=== PATIENT | female | born 1950 | race Caucasian/White ===

== ENCOUNTER → 2020-12-05 15:45 | Outpatient (CLI) | payer MEDICARE, OTHER, SELFPAY ==
--- NOTE | ~2020-12-05 | MM_ITS ---
EXAMINATION: MM screening axel BI w oscar HISTORY: Screening mammogram TECHNIQUE: Craniocaudal and mediolateral oblique 3-D tomosynthesis images were obtained and synthetic 2-D images were generated. CAD analysis was submitted and interpreted. COMPARISON: 07/11/2019 bilateral diagnostic digital mammogram 07/04/2019, 08/11/2017, 05/27/2016 bilateral digital screening mammogram examinations BREAST PARENCHYMAL COMPOSITION: The breasts are heterogeneously dense, which may obscure small masses . FINDINGS: Numerous scattered benign calcifications are again noted. Approximately 8.5 cm upper mid right breast mass with calcifications, diminished in size from approxi mately 11 mm on 05/27/2016, relatively stable in size since 07/04/2019. There is no evidence of suspici ous mass, calcification, or architectural distortion to suggest malignancy in either breast. There crow s been no suspicious interval change. IMPRESSION: 1. No mammographic evidence of malignancy. 2. Recommend routine screening mammography in one year. BI-RADS Category 2: Benign finding(s). Reviewed, dictated and finalized at location A. TER OPERATOR
== END ==
PROVIDERS: PCP Family Medicine Adolescent Medicine; Visit Provider Physician Assistant
DX: Z12.31 Encounter for screening mammogram for malignant neoplasm of breast (principal)
CPT/HCPCS: 77063; 77067

== ENCOUNTER 2021-12-28 13:37 | Outpatient (CLI) | payer MEDICARE, OTHER, SELFPAY ==
--- NOTE | 2021-12-31 12:11 | WPDHOLTEREM ---
Holter/Event Monitor Holter/Event Monitor Date of procedure: 12/28/21 Holter/Event Procedure: 48 Hr Holter Monitor Indications: Palpitations Conclusion: 1. 48 hour holter monitor on 12/28/21. 2. Underlying rhythm is sinus rhythm. HR range 55-100 bpm; average HR 69 bpm. 3. There are 24 premature supraventricular complexes and 3 supraventricular couplets. No supraventricular tachycardia. 4. There are 9 premature ventricular complexes. No ventricular tachycardia. 5. No sinoatrial or atrioventricular blocks. No significant pauses greater than 2 seconds. 6. Patient reports symptoms of hot flash, heart racing, lightheadedness which demonstrate sinus rhythm, HR range 66-80 bpm.
== END 2021-12-28 13:38 | disposition home or self-care (01) ==
PROVIDERS: PCP Family Medicine Adolescent Medicine; Visit Provider Physician Assistant
DX: R00.2 Palpitations (principal)
CPT/HCPCS: 93225; 93226

== ENCOUNTER → 2022-03-18 13:06 | Outpatient (CLI) | payer MEDICARE, OTHER, SELFPAY ==
--- NOTE | ~2022-03-18 | MM_ITS ---
EXAMINATION: MM screening axel BI w oscar HISTORY: Screening TECHNIQUE: Craniocaudal and mediolateral oblique 3-D tomosynthesis images were obtained and synthetic 2-D images were generated. CAD analysis was submitted and interpreted. COMPARISON: Comparison to multiple prior studies sequentially, with oldest reviewed study dated 05/27. BREAST PARENCHYMAL COMPOSITION: The breasts are heterogenously dense, which may obscure small masses FINDINGS: There are stable or diminished size of bilateral breast masses, consistent with benign mass es. There is no evidence of suspicious mass, calcification, or architectural distortion to suggest ma lignancy in either breast. There has been no suspicious interval change. IMPRESSION: 1. No mammographic evidence of malignancy. 2. Recommend routine screening mammography in one year. BI-RADS Category 2: Benign finding(s). Reviewed, dictated and finalized at location A.
== END ==
PROVIDERS: PCP Family Medicine Adolescent Medicine; Visit Provider Family Medicine Adolescent Medicine
DX: Z12.31 Encounter for screening mammogram for malignant neoplasm of breast (principal)
CPT/HCPCS: 77063; 77067

== ENCOUNTER → 2022-06-29 06:53 | Outpatient (CLI) | payer MEDICARE, OTHER, SELFPAY ==
--- NOTE | ~2022-06-29 | MR_ITS ---
EXAMINATION: MR knee RT wo con DATE: 06/29/2022 07:27 INDICATION: Right knee pain. Meniscal tear. TECHNIQUE: Magnetic resonance imaging (MRI) of the right knee was performed without intravenous contr ast. Sequences included axial PD-weighted FS FSE, coronal PD-weighted FSE and PD-weighted FS FSE, sag ittal PD-weighted FSE, and sagittal T2-weighted FS FSE. COMPARISON: None. FINDINGS: Medial compartment: There is a radial tear of posterior horn of medial meniscus. There is shallow partial-thickness carti nusrat loss of tibial condyle. There is partial-thickness cartilage loss of femoral condyle, deep at th e central and posterior articular surface. There is cartilage undermining at the central articular hurst rface. Osteophytes are noted. Lateral compartment: There is maceration of the lateral meniscus. There is extensive full-thickness cartilage loss of femo ral condyle and tibial condyle with cortical remodeling. Osteophytes are noted. Patellofemoral compartment: There is full-thickness cartilage fissuring involving patellar lateral facet with subchondral cysts. There is deep partial thickness cartilage loss of patellar median ridge and shallow partial-thickness cartilage loss of patellar medial facet. There is partial-thickness cartilage loss of trochlea, deep at the central trochlea. Osteophytes are noted. Ligaments and tendons: There is a complete tear of anterior cruciate ligament. Posterior cruciate ligament is normal. There are changes of prior sprains of medial collateral ligament and fibular collateral ligament characteri zed by thickening and increased signal intensity. There is mild patellar tendinopathy. Fluid: There is a moderate-sized knee joint effusion. There is a moderate-sized Vazquez's cyst. There is a 1.8 x 1.3 x 1.7 cm ganglion cyst arising from the popliteus tendon sheath. Osseous/other: There is mild osteoarthritis of proximal tibiofibular joint with moderate subchondral edema-like claribel ow signal intensity in fibular head. IMPRESSION: 1. 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 2. Tears of medial and lateral menisci. 3. Complete tear of anterior cruciate ligament. 4. Small knee joint effusion. 5. Moderate-sized Vazquez's cyst. Reviewed, dictated and finalized at location A. IMPRESSION: 1. 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 2. Tears of medial and lateral menisci. 3. Complete tear of anterior cruciate ligament. 4. Small knee joint effusion. 5. Moderate-sized Vazquez's cyst.
== END ==
PROVIDERS: PCP Family Medicine Adolescent Medicine; Visit Provider Physician Assistant
DX: M25.461 Effusion, right knee (principal); M71.21 Synovial cyst of popliteal space [Baker], right knee; S83.241A Other tear of medial meniscus, current injury, right knee, initial encounter; S83.281A Other tear of lateral meniscus, current injury, right knee, initial encounter; X58.XXXA Exposure to other specified factors, initial encounter
CPT/HCPCS: 73721

== ENCOUNTER 2022-09-13 10:45 | Outpatient (CLI) | payer MEDICARE, OTHER, SELFPAY ==
--- NOTE | 2022-09-13 11:05 | ECG_ITS ---
Measurements Intervals [place] Rate: 68 P: 69 OR: 192 QRS: 6 QRSD: 82 T: 40 QT: 393 QTc: 419 Interpretive Statements SINUS RHYTHM MINIMAL ST DEPRESSION [0.025+ mV ST DEPRESSION] BORDERLINE ECG NO PREVIOUS ECG AVAILABLE FOR COMPARISON Electronically Signed On 09-13-2022 15:12:38 [employer] by Vargas Monge M.D.
== END 2022-09-13 10:46 | disposition home or self-care (01) ==
PROVIDERS: PCP Family Medicine Adolescent Medicine; Visit Provider Orthopaedic Surgery
DX: I25.10 Atherosclerotic heart disease of native coronary artery without angina pectoris (principal); M17.11 Unilateral primary osteoarthritis, right knee; R94.31 Abnormal electrocardiogram [ECG] [EKG]
CPT/HCPCS: 93005

== ENCOUNTER 2022-11-03 09:51 | Outpatient (CLI) | payer MEDICARE, OTHER, SELFPAY ==
[2022-11-03 12:10] LABS: Basophils Percent Auto 0.5 % (0.2-1.2); Eosinophils Absolute Auto 0.1 K/mm3 (0-0.3); Eosinophils Percent Auto 1.7 % (0-4.4); Hematocrit 37.8 % (37.0-47.0); Hemoglobin 12.4 g/dL (12.0-15.0); Immature Granulocyte Absolute 0.02 K/mm3 (0.00-0.031); Immature Granulocyte Percent A 0.3 % (0-0.5); Lymphocytes Absolute Auto 2.02 K/mm3 (0.9-3.2); Lymphocytes Percent Auto 33.6 % (18.3-44.2); Mean Corpuscular HGB Conc 32.8 g/dl (32-36); Mean Corpuscular Volume 88.5 fl (80-100); Mean Platelet Volume 11.3 fl (7.4-10.4); Monocytes Absolute Auto 0.5 K/mm3 (0.1-0.6); Monocytes Percent Auto 7.7 % (2.6-8.5); Neutrophils Absolute Auto 3.4 K/mm3 (1.3-6.7); Neutrophils Percent Auto 56.2 % (45.5-73.1); Platelet Count Result 239 k/mm3 (150-375); Red Blood Count 4.27 M/mm3 (4.2-5.4); Red Cell Distribution Width 12.7 % (11.5-14.5)
[2022-11-03 12:12] LABS: Albumin Level 4.1 g/dL (3.5-5.1); Anion Gap 6 mmol/L (8-16); Blood Urea Nitrogen 11 mg/dL (7-17); Calcium 9.4 mg/dL (8.4-10.2); Carbon Dioxide 31 mmol/L (22-30); Chloride 102 mmol/L (98-107); Estimated Glomerular Filt Rate > 60; Glucose 122 mg/dL (65-110); Sodium 139 mmol/L (137-145)
[2022-11-03 12:14] LABS: Hemoglobin A1C 5.6 % (<5.7)
[2022-11-03 12:14] LABS: Urine Cotinine NEGATIVE
[2022-11-03 12:21] LABS: Prothrombin Time 12.4 Seconds (11.1-14.7)
[2022-11-03 12:22] LABS: Partial Thromboplastin Time 28.1 SECONDS (22.3-36.8)
[2022-11-03 12:50] LABS: Appearance Urine Clear (Clear); Bilirubin Urine Negative (Negative); Blood Urine Trace-lysed (Negative); Color Urine Yellow (Yellow); Glucose Urine UA Negative (Negative); Ketones Urine Negative (Negative); Leukocyte Esterase Ur Trace LEU/UL (Negative); Nitrate Urine Negative (Negative); Protein Urine Negative (Negative); Urobilinogen Urine 0.2 mg/dL (<2.0)
[2022-11-03 13:38] LABS: Mucus Urine Rare /lpf; RBC Urine 0-2 /hpf (0-2); WBC Urine 0-3 /hpf
[2022-11-03 13:43] LABS: Add Urine Microscopic? YES
== END 2022-11-03 09:52 | disposition home or self-care (01) ==
LOC: ANHSURGERY 09:56
PROVIDERS: PCP Family Medicine Adolescent Medicine; Visit Provider Orthopaedic Surgery
DX: M17.11 Unilateral primary osteoarthritis, right knee (principal); Z01.818 Encounter for other preprocedural examination
CPT/HCPCS: 80048; 80307; 81001; 82040; 83036; 85025; 85610; 85730; 87081

== ENCOUNTER 2022-11-17 01:07 | Day surgery (SDC) | payer MEDICARE, OTHER, SELFPAY ==
[2022-11-03 10:20] VITALS: BP 154/70; PULSE 72; RESP 18; TEMP 37.1; O2SAT 98; BMI 27.1
--- NOTE | 2022-11-03 10:41 | PC.NURSE ---
Addendum entered by Carla Karimi RN 11/03/22 11:04: PT INFORMED TO ALSO FOLLOW DR. RAIN'S INSTRUCTIONS REGARDING EXCEDRIN - UNDERSTANDING VOICED Original Note: PRE-OP INSTRUCTIONS, PLEASE READ CAREFULLY Report to the Outpatient Waiting Room, entrance under the green pavilion located off [facility], at time _0600_ on date _11/17/22_. Planned Procedure Time: _0730_. PACK A SMALL OVERNIGHT BAG AND LEAVE IN THE CAR ALONG WITH YOUR WALKER Time changes happen often and if your time is changed the preop area will call you the afternoon before. - You and your visitor will be asked to self-screen and do not enter if you have any COVID symptoms. - Only one visitor is requested with a max of two and NO children visitors are allowed at this time. - The patient visitor may be requested to leave or wait in car when not with patient due to distancing restrictions. - A mask is optional within the hospital at this time. -VISITING HOURS 8AM-8PM Patients may have clear liquids (water, carbonated beverages, clear teas, apple juice) until 3 hours prior to surgery (0430 AM) with a maximum of 20 ounces. - No food from midnight until time of surgery Take the following medications with a SIP of water the morning of surgery: _PROPRANOLOL, & DIAZEPAM & LORAZEPAM IF NEEDED_ DO NOT STOP ANY OF YOUR OTHER PRESCRIPTION MEDICATIONS PRIOR TO SURGERY ?EXCEPT THE FOLLOWING Medications to discontinue per DR. RAIN'S INSTRUCTIONS -_IBUPROFEN, NAPROXEN_ Please no make-up, nail german, hairspray, perfume, deodorant, or body powder the day of surgery. No jewelry (including any body piercings) or valuables the day of surgery, leave them at home. Please take a shower or bath the night before, or the morning of, surgery with an antibacterial soap. Wear comfortable, loose fitting clothing. - Jewelry must be removed prior to entering the operating room. Rings and piercings that are not removed may be cut off. - The hospital will not accept responsibility for valuables. - Please leave all valuables, including medications, at home the day of surgery. Follow any additional instructions given to you from your surgeon. If you or anyone in your household have experienced Covid symptoms in the past week, please notify your surgeon or the nurse liaison at the phone number below for possible testing. Instructions given to _PATIENT & SPOUSE_and asked if any additional questions and then verbalized understanding. Patient advised to call surgeon office or pre surgery nurse liaison [phone] if any additional questions.
[2022-11-17] VITALS (16 sets, daily range): BP systolic 109–166; BP diastolic 56–81; PULSE 63–81; RESP 12–18; TEMP 35.8–36.3; O2SAT 96–100
--- NOTE | ~2022-11-17 | XR_ITS ---
EXAMINATION: XR knee RT 2V DATE: 11/17/2022 09:55 INDICATION: Total right knee arthroplasty. Postop. TECHNIQUE: 2 views of right knee were obtained. COMPARISON: Right knee radiographs 07/15/2022 FINDINGS: There is a total right knee arthroplasty without patellar resurfacing in near-anatomic alig nment. There has been resection of a patellar osteophyte. There is gas in the knee joint and soft tis sues, consistent with recent surgery. Anterior skin roger are noted. IMPRESSION: 1. Total right knee arthroplasty in near-anatomic alignment. Reviewed, dictated and finalized at location A. IMEDIA JOURNALIST
[2022-11-17] MEDS: ACETAMINOPHEN 500 MG TABLET 1000 MG PO (06:15)
[2022-11-17] MEDS: LACTATED RINGERS 1,000 ML 30 ML IV CONT ×2 (06:44→10:05)
[2022-11-17 06:45] LABS: Glucose Point of Care 123 mg/dl (65-105)
--- NOTE | 2022-11-17 06:48 | WPDANESEPPF ---
Anes - Initial Pre Proc Eval Procedure: Operation Date: 11/17/22 07:30 Proposed Procedures p Right Total Knee Arthroplasty - Jorge Barron MD Date/Time: 11/17/22 06:48 Surgeon: Jorge Barron MD Pre Op Diagnosis: Rt Knee DJD Patient Data Age: 72 Gender: F Height: 1.59 m Weight: 68.2 kg Last Vital Signs Temp 37.1 C 11/03/22 10:20 Pulse 72 11/03/22 10:20 Resp 18 11/03/22 10:20 BP 154/70 H 11/03/22 10:20 Pulse Ox 98 11/03/22 10:20 O2 Del Method Room Air 11/03/22 10:20 Allergies Allergy/AdvReac Type Severity Reaction Status Date / Time No Known Allergies Allergy Verified 11/17/22 06:06 Home Medications Medication Instructions Recorded Confirmed Type rossuar-oyhgfeedetnxc-dpisuuxh 250 1 tablet PO Q4-6H PRN ZACARIAS 11/12/21 11/17/22 History mg-250 mg-65 mg tablet (Excedrin Migraine) ibuprofen 200 mg tablet 200 mg PO Q6H PRN Pain 11/12/21 11/17/22 History rizatriptan 10 mg tablet (Maxalt) See Rx Instructions PO .COMPLEX 11/12/21 11/17/22 History mirabegron 25 mg tablet,extended 25 mg PO DAILY #90 tabs 06/23/22 11/17/22 Rx release 24 hr (Myrbetriq) propranolol 40 mg tablet 40 mg PO Q12H #180 tabs 06/23/22 11/17/22 Rx cyanocobalamin (vitamin B-12) 2,500 mcg PO DAILY 08/17/22 11/17/22 History 1,000 mcg tablet (Vitamin B-12) atorvastatin 20 mg tablet 20 mg PO DAILY #90 tabs 09/02/22 11/17/22 Rx metformin 500 mg tablet,extended 500 mg PO BID #180 tabs 09/02/22 11/17/22 Rx release 24hr lorazepam 1 mg tablet 1 mg PO BID PRN anxiety #30 tabs 10/20/22 11/17/22 Rx pantoprazole 40 mg tablet,delayed 40 mg PO QAM #90 tabs 11/01/22 11/17/22 Rx release acetaminophen 325 mg capsule 650 mg PO QID PRN Pain 11/03/22 11/17/22 History (Tylenol) naproxen 500 mg tablet 500 mg PO BID PRN Pain 11/03/22 11/17/22 History diazepam 2 mg tablet 2 mg PO BID PRN anxiety #60 tabs 11/08/22 11/17/22 Rx chlorhexidine gluconate 4 % 1 applic topical ONCE #237 mL 11/10/22 11/17/22 Rx topical liquid (Hibiclens) Laboratory Tests 11/17/22 06:44 POC Capillary Glucose 123 mg/dl H mg/dl (65-105) Patient hx anesthesia problems: none Family hx anesthesia problems: none Results Review: All pre-operative results and documents have been reviewed as part of the pre-operative evaluation. [facility] Past Medical History Medical History Anxiety Aortic atherosclerosis CT scan 10/2018 Coronary artery disease without angina pectoris CT scan 10/2018 Diabetes type 2, controlled History of ovarian cyst Pure hypercholesterolemia, unspecified Surgical History Surgical History History of arthroscopic knee surgery bilateral History of removal of ovarian cyst [address] Clive Christopher History of surgery of uterus fibroid removed [address] Clive Christopher History of tonsillectomy 1958 Family History Family History Mother Cancer Other Cerebrovascular accident Diabetes mellitus Hyperlipidemia Hypertension Social History Social History Smoking status: Light tobacco smoker (pt. has currently stopped smoking for surgical treatment ) Tobacco type: cigars Additional smoking assessment comments: STATES 1 CIGAR EVERY 4 MONTHS OR SO - LAST CIGAR SMOKED SPRING 2021 Alcohol intake: current Alcohol use details: 3 DRINKS/MONTH Substance use type: marijuana Other substance usage details: 1/2 EDIBLE EVERY COUPLE OF WEEKS-LAST TAKEN 10/31/22 Living arrangements: with family Gender identity (if verbalized by the patient): Female Spiritual care concerns: No Anes - Eval Final PreProcedure Day of Procedure 11/17/22 06:48 Patient weight: overweight Heart: regular rate and rhythm Lungs: clear to auscultation Neurological: unresponsive Last oral intake: >/= 8
[2022-11-17] MEDS: TRANEXAMIC ACID 1,000MG/ISO100 1,000 MG/100 ML BAG 200 MG IVPB (07:12)
--- NOTE | 2022-11-17 07:20 | WPDHPUPDATE1 ---
History and Physical Update Update Date/Time: 11/17/22 07:20 History and Physical has been reviewed, including an updated exam of the patient. There are NO changes in the patient's condition. Risks, benefits, and alternatives have been discussed and questions answered. Patient agrees to proceed with procedure.
[2022-11-17] MEDS: ceFAZolin 2 GM/D5W 50 ML 2 GM/50 ML BAG IVPB ×3 (07:41→22:38)
[2022-11-17] MEDS: GENTAMICIN BONE CEMENT REFOBACIN 1 EACH TOPICAL (08:36)
[2022-11-17] MEDS: BUPivacaine HCL 0.5% PF 30 ML VIAL INFILTRATE (08:59)
[2022-11-17] MEDS: TRANEXAMIC ACID 1,000 MG/10 ML AMPUL 1000 MG IV PUSH (09:10)
--- NOTE | 2022-11-17 09:34 | W.PM.PROC2 ---
Procedure Note - Detailed Date of Procedure 11/17/22 Pre-op Diagnosis Rt Knee DJD Post-op Diagnosis Same Procedure Performed R TKA Surgeon Jorge Barron MD Anesthesia General Description of Procedure THE RIGHT KNEE WAS PREPPED AND DRAPED IN THE STERILE FASHION. A MIDLINE SKIN INCISION WAS MADE. A MEDIAL PARAPATELLAR ARTHROTOMY WAS MADE. THE PATELLA WAS EVERTED. THERE WAS TRICOMPARTMENT DJD. THERE WAS MINIMAL PATELLA DJD. AN INTRAMEDULLARY MICHAEL WAS PLACED IN THE FEMUR. A DISTAL FEMORAL CUT WAS MADE IN 5 DEGREES OF VALGUS REMOVING APPROXIMATELY 9 MM OF BONE FROM THE DISTAL FEMUR. THE FEMUR WAS SIZED TO 60. A 60 FEMORAL CUTTING BLOCK WAS PLACED IN 3 DEGREES OF EXTERNAL ROTATION AND IN ALIGNMENT WITH MISSY'S LINE AND THE TRANSEPICONDYLAR AXIS. ANTERIOR POSTERIOR AND CHAMFER CUTS WERE MADE. THE CUTS WERE EXCELLENT. NEXT AN INTRAMEDULLARY CUTTING GUIDE WAS PLACED IN THE TIBIA. A TRANS TIBIAL CUT WAS MADE ALONG THE LONG AXIS OF THE TIBIA. APPROXIMATELY 10 MM OF BONE WAS REMOVED FROM THE HIGH SIDE OF THE TIBIA. THE TIBIA WAS THEN PLANED TO A SMOOTH SURFACE. POSTERIOR FEMORAL OSTEOPHYTES WERE REMOVED FROM THE FEMORAL CONDYLES. A 71 TIBIAL TRIAL WAS PLACED IN ALIGNMENT WITH THE 1/3 MEDIAL ASPECT OF THE TIBIAL TUBERCLE. THEN A 60 FEMORAL TRIAL COMPONENT WAS PLACED. BOTH HAD EXCELLENT FITS. EVENTUALLY A 10 MM POLYETHYLENE TRIAL COMPONENT WAS PLACED. THE KNEE WAS TAKEN THROUGH A RANGE OF MOTION. THE KNEE CAME OUT TO FULL EXTENSION. THERE WAS NO ABNORMAL TILT TO THE PATELLA. THERE WAS GOOD A/P AND VARUS/VALGUS STABILITY. THERE WAS NO EXCESSIVE ROLL BACK WITH FLEXION. THE TRIAL COMPONENTS WERE REMOVED. THEN A 60 FEMORAL COMPONENT AND 71 TIBIAL COMPONENT WITH A 10 POLYETHYLENE COMPONENT WERE CEMENTED INTO PLACE. ONCE THE CEMENT WAS HARD THE KNEE WAS TAKEN THROUGH A ROM AGAIN AND FOUND TO BE STABLE WITH NO PATELLA TILT NO EXCESSIVE ROLL BACK WITH FLEXION AND GOOD STABILITY WITH COMPLETE AND FULL EXTENSION. THE KNEE WAS IRRIGATED WITH STERILE BETADINE AND WATER FOR ABOUT 3 MINUTES. THE BLEEDERS WERE CAUTERIZED. THE ARTHROTOMY WAS REPAIRED WITH NUMBER 1 VICRYL. THE SUB CUTANEOUS LAYER WITH 2-0 VICRYL AND THE SKIN WITH SANDEE. THE WOUND WAS WASHED AND A STERILE DRESSING WAS APPLIED. PATIENT WAS EXTUBATED. Estimated Blood Loss -100 Pathology None sent Complications No immediate complications Condition Stable Disposition PACU
[2022-11-17] MEDS: fentaNYL CITRATE INJ (*CRX) 100 MCG/2 ML VIAL 25 MCG IV PUSH ×4 (09:51→10:40)
[2022-11-17 10:19] LABS: Glucose Point of Care 167 mg/dl (65-105)
[2022-11-17 12:10] LABS: Glucose Point of Care 162 mg/dl (65-105)
--- NOTE | 2022-11-17 12:21 | ADMGEN ---
This patient, Tanisha Clark, was admitted to [address] [facility] Surg Room 310-01. Patient/family oriented to hospital policies and general routines including ID bracelet, bed and alarms, visiting hours, pain management, procedures, bathroom and other care routines, personal items, smoking policy, room service/diet, and visiting hours. Information on how to activate the Rapid Response Team has been discussed. Patient/Family are encouraged to report perceived risks to care and to ask questions if they do not understand what they are told or what they should do.
[2022-11-17] MEDS: oxyCODONE/ACETAMINOPHEN (*CRX) 5-325 MG TABLET 1 TABLET PO ×3 (12:35→22:38)
[2022-11-17] MEDS: SODIUM CHLORIDE 0.9% IV 1,000 ML 125 ML IV CONT (12:36)
[2022-11-17 16:37] LABS: Glucose Point of Care 179 mg/dl (65-105)
[2022-11-17] MEDS: CELECOXIB 200 MG CAPSULE PO (17:02)
[2022-11-17] MEDS: SENNA/DOCUSATE SODIUM TABLET 2 TAB PO (17:02)
[2022-11-17] MEDS: metFORMIN HCL XR 500 MG TAB.SR.24H PO (17:03)
[2022-11-17] MEDS: ASPIRIN 325 MG ENTERIC TABLET PO (20:15)
[2022-11-17] MEDS: PROPRANOLOL HCL 40 MG TABLET PO (20:15)
[2022-11-17] MEDS: FAMOTIDINE 20 MG TABLET PO (20:15)
[2022-11-17 20:58] LABS: Glucose Point of Care 173 mg/dl (65-105)
[2022-11-18 04:10] VITALS: BP 105/55; PULSE 69; RESP 16; TEMP 36.2; O2SAT 98
[2022-11-18 06:07] LABS: Basophils Percent Auto 0.3 % (0.2-1.2); Eosinophils Percent Auto 0.1 % (0-4.4); Hematocrit 29.2 % (37.0-47.0); Hemoglobin 9.5 g/dL (12.0-15.0); Immature Granulocyte Absolute 0.05 K/mm3 (0.00-0.031); Immature Granulocyte Percent A 0.4 % (0-0.5); Lymphocytes Absolute Auto 2.08 K/mm3 (0.9-3.2); Mean Corpuscular HGB Conc 32.5 g/dl (32-36); Mean Corpuscular Hemoglobin 29.1 pg (26-34); Mean Corpuscular Volume 89.3 fl (80-100); Mean Platelet Volume 10.8 fl (7.4-10.4); Monocytes Absolute Auto 1.6 K/mm3 (0.1-0.6); Monocytes Percent Auto 11.8 % (2.6-8.5); Neutrophils Absolute Auto 10.1 K/mm3 (1.3-6.7); Neutrophils Percent Auto 72.4 % (45.5-73.1); Platelet Count Result 220 k/mm3 (150-375); Red Blood Count 3.27 M/mm3 (4.2-5.4); Red Cell Distribution Width 12.9 % (11.5-14.5); White Blood Count 13.9 K/mm3 (4.5-10.0)
[2022-11-18] MEDS: ceFAZolin 2 GM/D5W 50 ML 2 GM/50 ML BAG IVPB (06:12)
[2022-11-18 06:17] LABS: Anion Gap 6 mmol/L (8-16); Blood Urea Nitrogen 12 mg/dL (7-17); Carbon Dioxide 27 mmol/L (22-30); Chloride 95 mmol/L (98-107); Estimated CRCL calculation 59 ml/min; Estimated Glomerular Filt Rate > 60; Glucose 123 mg/dL (65-110); Potassium 3.9 mmol/L (3.4-5.0); Sodium 128 mmol/L (137-145)
[2022-11-18 07:38] LABS: Glucose Point of Care 136 mg/dl (65-105)
[2022-11-18] MEDS: metFORMIN HCL XR 500 MG TAB.SR.24H PO (08:43)
[2022-11-18] MEDS: CELECOXIB 200 MG CAPSULE PO (08:44)
[2022-11-18] MEDS: FAMOTIDINE 20 MG TABLET PO (08:45)
[2022-11-18] MEDS: CYANOCOBALAMIN TAB 2,000 MCG, CYANOCOBALAMIN TAB 500 MCG 2500 MCG PO (08:45)
[2022-11-18] MEDS: ATORVASTATIN 20 MG TABLET PO (08:45)
[2022-11-18] MEDS: ASPIRIN 325 MG ENTERIC TABLET PO (08:45)
[2022-11-18] MEDS: SENNA/DOCUSATE SODIUM TABLET 2 TAB PO (08:45)
[2022-11-18] MEDS: polyethylene glycoL 3350 17 GM POWD.PACK PO (08:46)
[2022-11-18] MEDS: MIRABEGRON 25 MG ER TABLET PO (08:46)
[2022-11-18] MEDS: PANTOPRAZOLE 40 MG TABLET PO (08:46)
[2022-11-18 08:47] VITALS: PULSE 64
[2022-11-18] MEDS: PROPRANOLOL HCL 40 MG TABLET PO (08:47)
--- NOTE | 2022-11-18 09:21 | WPDANESPN ---
Anes - Prog Note Post-Op Date/Time: 11/18/22 09:21 Cardiovascular status: normal Respiratory status: normal Airway patency: baseline Mental status: baseline Post-Op hydration status: normal Vital Signs: Last Vital Signs Temp 97.2 F L 11/18/22 04:10 Pulse 64 11/18/22 08:47 Resp 16 11/18/22 04:10 BP 105/55 L 11/18/22 04:10 Pulse Ox 98 11/18/22 04:10 O2 Del Method Room Air 11/17/22 20:00 O2 Flow Rate 1 11/17/22 12:27 Pain Score (VAS): 3 I/O: Intake & Output 11/17/22 11/18/22 11/18/22 23:59 07:59 15:59 Intake Total 340 50 Balance 340 50 Laboratory Tests 11/18/22 05:55 11/18/22 05:55 11/17/22 11/17/22 11/17/22 10:17 12:07 16:25 WBC RBC Hgb Hct MCV MCH MCHC RDW Plt Count MPV Immature Gran % (Auto) Neut % (Auto) Lymph % (Auto) [place] % (Auto) Eos % (Auto) Baso % (Auto) Lymph # (Auto) [place] # (Auto) Eos # (Auto) Baso # (Auto) Abs Immat Gran (auto) Absolute Neuts (auto) Absolute Nucleated RBC Nucleated RBC % Sodium Potassium Chloride Carbon Dioxide Anion Gap BUN Creatinine Estim Creat Clear Calc Estimated GFR Glucose POC Capillary Glucose 167 H 162 H 179 H Calcium 11/17/22 11/18/22 11/18/22 20:14 05:55 05:55 WBC 13.9 H RBC 3.27 L Hgb 9.5 L Hct 29.2 L MCV 89.3 MCH 29.1 MCHC 32.5 RDW 12.9 Plt Count 220 MPV 10.8 H Immature Gran % (Auto) 0.4 Neut % (Auto) 72.4 Lymph % (Auto) 15.0 L [place] % (Auto) 11.8 H Eos % (Auto) 0.1 Baso % (Auto) 0.3 Lymph # (Auto) 2.08 [place] # (Auto) 1.6 H Eos # (Auto) 0.0 Baso # (Auto) 0.0 Abs Immat Gran (auto) 0.05 H Absolute Neuts (auto) 10.1 H Absolute Nucleated RBC 0.0 Nucleated RBC % 0.0 Sodium 128 L Potassium 3.9 Chloride 95 L Carbon Dioxide 27 Anion Gap 6 L BUN 12 Creatinine 0.70 Estim Creat Clear Calc 59 Estimated GFR > 60 Glucose 123 H POC Capillary Glucose 173 H Calcium 8.0 L 11/18/22 07:20 WBC RBC Hgb Hct MCV MCH MCHC RDW Plt Count MPV Immature Gran % (Auto) Neut % (Auto) Lymph % (Auto) [place] % (Auto) Eos % (Auto) Baso % (Auto) Lymph # (Auto) [place] # (Auto) Eos # (Auto) Baso # (Auto) Abs Immat Gran (auto) Absolute Neuts (auto) Absolute Nucleated RBC Nucleated RBC % Sodium Potassium Chloride Carbon Dioxide Anion Gap BUN Creatinine Estim Creat Clear Calc Estimated GFR Glucose POC Capillary Glucose 136 H Calcium Post-procedural complaints: none Patient Feedback: Patient satisfied with anesthetic care.
--- NOTE | 2022-11-18 10:02 | PM.PNORT ---
Progress Note: A&P Assessment and Plan (1) S/P total knee arthroplasty: Qualifiers: Laterality: right Qualified Code(s): Z96.651 - Presence of right artificial knee joint Code(s): Z96.659 - Presence of unspecified artificial knee joint Status: Acute Assessment and Plan: POD #1 : Right TKA Continue PT/OT. WBAT. Walker. HIGH FALL RISK. Continue pain control. Ice Knee. Protect skin. DVT prophylaxis with Aspirin. SCDs. Incentive Spirometry Use reviewed. Monitor Dressing. Change prior to discharge. Bowel Regimen. Dispo: Home with Home Health pending progress with PT/OT Subjective Subjective Date/Time Seen: 11/18/ 10:02 Post Op day: 1 Principal diagnosis: Right Knee DJD Interval history: POD #1: Right TKA Patient doing very well. Pain well controlled. Working well with PT/OT. No new concerns. Hopeful for discharge home today. Review of Systems Review of Systems: All systems reviewed & are unremarkable except as noted in HPI and below Constitutional: Constitutional: Denies fever(s) and Denies headache(s) ENT: Denies headache(s) Cardiovascular: Cardiovascular: Denies chest pain, Denies diaphoresis, Denies palpitations and Denies dyspnea Respiratory: Respiratory: Denies dyspnea Gastrointestinal: Gastrointestinal: Denies abdominal pain, Denies constipation, Denies nausea and Denies vomiting Genitourinary: Genitourinary: Reports nocturia and Denies dysuria Musculoskeletal: Musculoskeletal: Reports arthralgias (Right Knee ) and Reports joint swelling (Right Knee ) Neurologic: Denies headache(s) Endocrine: Endocrine: Denies palpitations Exam Const: General: comfortable and no acute distress Resp: Effort & Inspection: normal respiratory effort Cardio: Rate: regular rate Rhythm: regular rhythm GI: GI Palp: Yes Soft to palpation, No Tenderness to palpation present (GI) and No Guarding due to palpation present (GI) Skin: General skin exam: wounds noted Wounds: wounds noted Other: Incision c/d/i. No surrounding redness/warmth. No hematoma. Mild ecchymosis. No wound dehiscence Neuro: Cognition (Neuro): normal cognition Other: NV intact aside from block. Moves toes. Sensation intact to light touch. +ankle dorsiflexion/plantarflexion. Extrem: Right lower extremity: normal to inspection, knee Details: tenderness (diffuse, mild ) Location: of the patella, swelling (diffuse, consistent with surgical intervention ), abnormal ROM Details: pain with active ROM during, pain with passive ROM during and with range as follows (limited due to recent surgical intervention ); able to extend lower leg actively and ecchymosis (mild ), lower leg (Negative Joaquim's Sign ) Details: normal to inspection; no erythema and no tenderness, ankle (+ankle dorsiflexion/plantarflexion ) Details: normal to inspection, no edema and normal ROM; no tenderness, no swelling and no ecchymosis and foot Details: normal capillary refill, normal to inspection, vascular exam Details: dorsalis pedis pulse present and motor-sensory exam Details: light-touch normal; no tenderness Left lower extremity: normal to inspection Psych: Mental Status: mental status grossly normal Objective Data Vital Signs Vital Signs: Vital Signs - 24 hr 11/17/22 10:10 11/17/22 10:25 11/17/22 10:40 Temperature Pulse Rate 73 73 76 Respiratory Rate 12 12 16 Blood Pressure 133/73 144/81 H 152/78 H Pulse Oximetry 100 96 100 Oxygen Delivery Simple Face Mask Nasal Cannula Nasal Cannula Oxygen Flow Rate 8 2 2 11/17/22 10:55 11/17/22 11:10 11/17/22 11:25 Temperature Pulse Rate 79 64 64 Respiratory Rate 12 12 12 Blood Pressure 140/75 139/74 142/72 H Pulse Oximetry 100 100 100 Oxygen Delivery Nasal Cannula Nasal Cannula Nasal Cannula Oxygen Flow Rate 2 2 2 11/17/22 11:35 11/17/22 12:27 11/17/22 11:40 Temperature 35.8 C L Pulse Rate 65 63 Respiratory Rate 18 12 Blood Pressure 148/74 H 141/72 H Pulse Oximetry
[2022-11-18 11:51] LABS: Glucose Point of Care 153 mg/dl (65-105)
--- NOTE | 2022-11-18 12:44 | PM.DS ---
DS: Admitting Diagnosis Discharge Date 11/18/22 Admitting Diagnosis Right Knee DJD DS: Discharge Diagnosis Discharge Diagnosis (1) S/P total knee arthroplasty: Qualifiers: Laterality: right Qualified Code(s): Z96.651 - Presence of right artificial knee joint Code(s): Z96.659 - Presence of unspecified artificial knee joint Status: Acute Assessment and Plan: POD #1 : Right TKA Continue PT/OT. WBAT. Walker. HIGH FALL RISK. Continue pain control. Ice Knee. Protect skin. DVT prophylaxis with Aspirin. SCDs. Incentive Spirometry Use reviewed. Monitor Dressing. Change prior to discharge. Bowel Regimen. Dispo: Home with Home Health pending progress with PT/OT DS: Summary Hospital Course Reason for hospitalization: Right TKA Hospital Course: 72 year old female admitted s/p Right TKA for postoperative medical management, pain control and mobilization with PT/OT. Patient progressed well with PT/OT. Pain and vitals stable throughout. They have been cleared to be discharged home with home health at this time. Follow up planned for 3 weeks in the outpatient orthopedic clinic with Dr. Barron. Status at Discharge Functional status at discharge: uses cane/walker Overall status at discharge: patient is progressing back to baseline Time Spent with Patient Time attestation: Total time spent providing and/or coordinating discharge services: Exam Const: General: comfortable and no acute distress Resp: Effort & Inspection: normal respiratory effort Cardio: Rate: regular rate Rhythm: regular rhythm Skin: General skin exam: wounds noted Wounds: wounds noted Other: Incision c/d/i. No surrounding redness/warmth. No hematoma. Mild ecchymosis. No wound dehiscence Neuro: Cognition (Neuro): normal cognition Other: NV intact aside from block. Moves toes. Sensation intact to light touch. +ankle dorsiflexion/plantarflexion. Extrem: Right lower extremity: normal to inspection, knee Details: tenderness (diffuse, mild ) Location: of the patella, swelling (diffuse, consistent with surgical intervention ), abnormal ROM Details: pain with active ROM during, pain with passive ROM during and with range as follows (limited due to recent surgical intervention ); able to extend lower leg actively and ecchymosis (mild ), lower leg (Negative Joaquim's Sign ) Details: normal to inspection; no erythema and no tenderness, ankle (+ankle dorsiflexion/plantarflexion ) Details: normal to inspection, no edema and normal ROM; no tenderness, no swelling and no ecchymosis and foot Details: normal capillary refill, normal to inspection, vascular exam Details: dorsalis pedis pulse present and motor-sensory exam Details: light-touch normal; no tenderness Left lower extremity: normal to inspection, normal capillary refill, knee Details: tenderness (diffuse ) Location: of the patella, swelling (moderate consistent to recent surgery ), abnormal ROM (limited due to recent surgery ) Details: pain with active ROM and pain with passive ROM and ecchymosis (as expected with recent surgery. NO hematoma. ), lower leg (Negative Joaquim's Sign ), ankle (+ankle dorsiflexion/plantarflexion ) Details: normal to inspection, no edema and normal ROM; no tenderness and no swelling and foot Details: normal capillary refill, toes with normal ROM, vascular exam Details: dorsalis pedis pulse present and motor-sensory exam light-touch normal; no tenderness Other: Incision left TKA dressing c/d/i. No hematoma. No signs of infection. No wound dehiscence. Psych: Mental Status: mental status grossly normal DS: Data Data Completed and Pending Labs on day of discharge: Labs from last 24 hours 11/18/22 11/18/22 11/18/22 11:45 07:20 05:55 WBC RBC Hgb Hct MCV MCH MCHC RDW Plt Count MPV Immature Gran % (Auto) Neut % (Auto) Lymph % (Auto) [place] % (Auto) Eos % (Auto) Baso % (Auto) Lymph # (Auto) [place] # (A
== END 2022-11-18 14:20 | disposition home health service (06) ==
LOC: ANHSURGERY 05:48 → ANH3MEDSUR 11:55
PROVIDERS: PCP Family Medicine Adolescent Medicine; Visit Provider Orthopaedic Surgery
PROC: (CPT 27447; principal; 2022-11-17 07:30)
DX: M17.11 Unilateral primary osteoarthritis, right knee (principal); I25.10 Atherosclerotic heart disease of native coronary artery without angina pectoris; E11.9 Type 2 diabetes mellitus without complications; E78.00 Pure hypercholesterolemia, unspecified; F41.9 Anxiety disorder, unspecified; I70.0 Atherosclerosis of aorta; Z79.84 Long term (current) use of oral hypoglycemic drugs; Z72.0 Tobacco use; F12.90 Cannabis use, unspecified, uncomplicated
CPT/HCPCS: 27447; 36415; 73560; 80048; 82948; 85025; 86850; 86900; 86901; 97110; 97116; 97165; 97530; 97535; A9270; C1713; C1776; C9290; J0171; J0690; J1200; J1885; J2270; J2370; J2405; J2704; J2795; J3010; J3370; J7030; J7120

== ENCOUNTER 2023-08-31 00:59 | Day surgery (SDC) | payer MEDICARE, OTHER, SELFPAY ==
[2023-08-16 10:02] VITALS: BMI 26.6
--- NOTE | 2023-08-29 10:06 | SUR.PREOP ---
Patient called regarding upcoming procedure. Patient did not answer- message left with arrival time.
--- NOTE | 2023-08-30 16:46 | PM.HPGS ---
History of Present Illness History of Present Illness Consent: Risks, benefits, and alternatives have been discussed and questions answered. Patient agrees to proceed with procedure. Chief complaint: Neoplasm Screening Narrative: Tanisha Clark is a 73 year old female referred for colon cancer screening. Her last colonoscopy was 11 years ago Review of Systems Review of Systems: All systems reviewed & are unremarkable except as noted in HPI and below PMFSH Past Medical History Medical History Anxiety Aortic atherosclerosis CT scan 10/2018 Coronary artery disease without angina pectoris CT scan 10/2018 Diabetes type 2, controlled History of ovarian cyst Pure hypercholesterolemia, unspecified Surgical History Surgical History History of arthroscopic knee surgery bilateral History of removal of ovarian cyst [address] Clive Christopher History of surgery of uterus fibroid removed [address] Clive Christopher History of tonsillectomy 1958 History of total right knee replacement (11/2022) S/P total knee arthroplasty RT TKA 11/17/22 Family History Family History Mother Cancer Other Cerebrovascular accident Diabetes mellitus Hyperlipidemia Hypertension Social History Social History Smoking status: Never smoker Tobacco type: cigars Additional smoking assessment comments: STATES 1 CIGAR EVERY 4 MONTHS OR SO - LAST CIGAR SMOKED SPRING 2021 Alcohol intake: current Drinks per week: 1 Alcohol use details: 3 DRINKS/MONTH Substance use: current Substance use type: marijuana Other substance usage details: edible marijuana gummies occasionally Lack of Transportation: No Lack of Food: Never True Current Housing: I Have Housing Concerned About Future Housing: No Difficulty Paying Gas/Electric Bills: YES Difficulty Paying for Meds: No Currently Unemployed: No Education: High School Diploma/GED Difficulty w/ Childcare or Family Care: No Living arrangements: with family Gender identity (if verbalized by the patient): Female Spiritual care concerns: No Meds Home Medications and Allergies Home Medications Medication Instructions Recorded Confirmed Type rizatriptan 10 mg tablet (Maxalt) See Rx Instructions PO .COMPLEX 11/12/21 08/31/23 History PRN Headache cyanocobalamin (vitamin B-12) 2,500 mcg PO DAILY 08/17/22 08/31/23 History 1,000 mcg tablet (Vitamin B-12) lorazepam 1 mg tablet 1 mg PO BID PRN anxiety #30 tabs 10/20/22 08/31/23 Rx acetaminophen 325 mg capsule 650 mg PO QID PRN Pain 11/03/22 08/31/23 History (Tylenol) naproxen 500 mg tablet 500 mg PO BID PRN Pain 11/03/22 08/31/23 History diazepam 2 mg tablet 2 mg PO BID PRN anxiety #60 tabs 05/19/23 08/31/23 Rx atorvastatin 20 mg tablet 20 mg PO DAILY #90 tabs 05/23/23 08/31/23 Rx metformin 500 mg tablet,extended 500 mg PO BID #180 tabs 05/23/23 08/31/23 Rx release 24hr propranolol 40 mg tablet 40 mg PO Q12H #180 tabs 05/23/23 08/31/23 Rx Allergies Allergy/AdvReac Type Severity Reaction Status Date / Time No Known Allergies Allergy Verified 08/31/23 10:31 Exam Const: General: alert Orientation/consciousness: patient oriented x3 Resp: Auscultation: clear to auscultation bilaterally Cardio: Rhythm: regular rhythm GI: GI Palp: Yes Soft to palpation and No Tenderness to palpation present (GI) Neuro: General: patient oriented x3 Assessment and Plan Assessment and plan (1) Colon cancer screening: Code(s): Z12.11 - Encounter for screening for malignant neoplasm of colon Status: Acute Assessment and Plan: Colonoscopy with possible biopsy or polypectomy or cautery or injection of substances.
[2023-08-31 10:35] VITALS: BP 146/79; PULSE 76; RESP 16; TEMP 36.7; O2SAT 100
[2023-08-31] MEDS: LACTATED RINGERS 1,000 ML 150 ML IV CONT (10:43)
[2023-08-31] MEDS: AMPICILLIN 2 GM/NS 100 ML 2 GM/100 ML BAG IVPB (10:47)
[2023-08-31 10:53] LABS: Glucose Point of Care 101 mg/dl (65-105)
[2023-08-31 11:23] VITALS: BP 128/59; PULSE 74; RESP 18; O2SAT 98
[2023-08-31 11:33] VITALS: BP 129/64; PULSE 70; RESP 18; O2SAT 100
[2023-08-31 11:43] VITALS: BP 139/61; PULSE 64; RESP 18; O2SAT 100
== END 2023-08-31 11:50 | disposition home or self-care (01) ==
PROVIDERS: PCP Family Medicine Adolescent Medicine; Visit Provider Internal Medicine Gastroenterology
PROC: 0DJD8ZZ Inspection of Lower Intestinal Tract, Via Natural or Artificial Opening Endoscopic (ICD-10-PCS; CPT 45378; principal; 2023-08-31 11:30)
DX: Z12.11 Encounter for screening for malignant neoplasm of colon (principal); K57.30 Diverticulosis of large intestine without perforation or abscess without bleeding; F41.9 Anxiety disorder, unspecified; E11.9 Type 2 diabetes mellitus without complications; E78.00 Pure hypercholesterolemia, unspecified; F17.290 Nicotine dependence, other tobacco product, uncomplicated; Z79.1 Long term (current) use of non-steroidal anti-inflammatories (NSAID); Z79.84 Long term (current) use of oral hypoglycemic drugs; Z86.79 Personal history of other diseases of the circulatory system; Z82.49 Family history of ischemic heart disease and other diseases of the circulatory system; Z80.9 Family history of malignant neoplasm, unspecified
CPT/HCPCS: G0105; 82948; J0290; J2704; J7120

== ENCOUNTER → 2025-06-06 11:44 | Outpatient (CLI) | payer MEDICARE, OTHER, SELFPAY ==
--- NOTE | ~2025-06-06 | XR_ITS ---
X-rays left knee Indication: Pain Comparison: None Technique: 4 views left knee Findings/Impression: 1. No fracture, dislocation, or joint effusion left knee. 2. Mild medial compartment narrowing, with marginal osteophytes. Reviewed, dictated and finalized at location R.
== END ==
LOC: EXPCRAD 11:46
PROVIDERS: PCP Family Medicine; Visit Provider Family Medicine
DX: M25.562 Pain in left knee (principal)
CPT/HCPCS: 73564